=== PATIENT | female | born 1955 ===

== ENCOUNTER 2025-03-20 14:10 | Outpatient (AMB) | payer MEDICARE, SELFPAY ==
--- OUTSIDE RECORDS SUMMARY | 2025-01-02 06:40 | XMS_ITS ---
Author Organization [facility], Address [address] [address] Care Team Providers Care Greenhouse Manager Name Role Phone STACIE AMADOR Unavailable [phone] REASON FOR VISIT EST PATIENT, NEW INJ LUMBAR SPINE, GETTING XRAY NIÑO ERVIN Social History Sex Assigned At : Social History Observation Description Sex Assigned At Female Encounters Encounter Location Date Provider Diagnosis [facility], [address] [address] 01/02/2025 STACIE AMADOR Plan Of Treatment Next Appt Details Provider Name:STACIE MO, 09/04/2025 11:00:00 AM, [address] [address], [place], [address], Progress Notes * SHAWNElierZackB: (69 yo F)Acc No.[id number]:01/02/2025 Progress Notes Patient: Suha GRANADO Provider: Riana Amador DO :1955 A ge:69 Y S ex:Female Date:01/02/2025 Address:[address] [place] Subjective: * Chief Complaints: * 1 . EST PATIENT, NEW INJ LUMBAR SPINE, GETTING XRAY NIÑO ERVIN. * Medical History: Objective: * Vitals: Assessment: Plan: * Treatment: * Billing Information: * Visit Code: * Procedure Codes: * Electronic signature of JOSE A AMADOR DO on 03/20/2025 at 02:52 PM EDT Sign off status: Pending * Provider: Riana Amador DO Date: 0 01/02/2025 Generated for Karina bourgeois/Claudio/Kye on: 0 03/20/2025 02:52 PM EDT
--- OUTSIDE RECORDS SUMMARY | 2025-03-20 14:52 | XMS_ITS | Patient Health Record ---
Author Organization [facility] Address [address] [facility] [place] [address] Care Team Providers Care Bonus Clerk Name Role Phone Jim Alford Primary Care Provider Unavailab Albino Mckoy Unavailable [phone] Allergies Allergen (clinical drug ingredient) Drug/Non Drug Allergy documented on EMR Reaction Allergy Type Onset Date Status sulfamethoxazole / trimethoprim Bactrim Drug poisoning Drug Allergy Active lisinopril Lisinopril diastolic dysfunction Drug Allergy Active Motrin nausea Drug Allergy Active aspirin Aspirin ringing in ears Drug Allergy A ctive cortisone Cortisone osteoporosis Drug Allergy Acti ve famotidine Famotidine rash Drug Allergy Activ e fentanyl Fentanyl lowers blood pressure Drug Allergy Active Reason For Referral No Information Medications Medication SIG (Take, Route, Frequency, Duration) Notes Start Date End Date Status Cozaar 150 mg QD Unknown Nightsplint . . . AFO - L1930; Duration: . Unknown Losartan Potassium A ctive traMADol HCl 50 MG 1 tablet as needed Orally every 6 hrs 03/04/2018 Active traMADol HCl 50 MG 1 tablet as needed Orally Once a day Active Physical Therapy . . . 2-3x/week; Duration: 3-4 weeks 03/08/2018 Unknown Milk of Magnesia PRN Act brandon Phentermine HCl 15 MG 1 capsule Orally O nce a day Active fentaNYL Active PriLOSEC Active Loratadine Active Milk of Magnesia Act brandon PriLOSEC Active Calcium Active Aleve Active Losartan Potassium 25 MG 1 tablet Orally Once a day; Duration: 30 day(s) Active Calcium Active Loratadine PRN Active Aleve 220 MG 1 capsule with food or milk as needed Orally every 12 hrs Active Physical Therapy . . . 2-3x/week; Duration: 3-4 weeks 04/03/2022 Active Immunizations Vaccine Route Administration Date Status Comme nts COVID-19 Pfizer BioNTech Vaccine Unknown 11/29/2021 Administered 1st 11/01/20 2nd 11/22/20 3rd 07/14/21 Social History Tobacco Use: Social History Observation Description Date Details (start date - stop date) Never Smoker NA - NA Tobacco Use/Smoking Question Answer Notes Are you a: nonsmoker Additional Findings: Tobacco Non-User Current no n-smoker Alcohol Screen Question Answer Notes Did you have a drink containing alcohol in the p ast year? No Points 0 Interpretation Negative Tobacco use other than smoking: Question Answer Notes Are you an other tobacco user? No Problems Problem Type SNOMED Code ICD Code Onset Dates Problem Status W/U Status Risk Notes Problem Plantar wart (B07.0) Active confirmed Plan Of Treatment Pending Test Test Name Order Date [id number] Destruction, 1-14 04/03/2022 Insurance Providers Payer Name Payer Address Payer Phone Subscriber Number Group Number Insured Name Patient Relationship to Insured Coverage Start Date Coverage End Date Medicare [employer] [address] [place] [address] [id number] Suha Swain Self - patient is the insured Medical (General) History Medical History History ICD Code Arthritis Back,Hip,and Knee pain Broken bones Heart disease High blood pressure Osteoporosis Poor circulation Reflux ( GERD) Measles Mumps Chicken pox chronic sinusitis Surgical History Surgery Date(Month/Year) open reduction, internal fixation (ORIF) Left 2006 open reduction, internal fixation (ORIF) Right 2007 partial hysterectomy- vasovagal due to e pidural knee surgery, right- torn meniscus knee surgery, left- torn meniscus Fx radius severe Left and right ulnar po sitive left Spine L4- torn disc; C5 herniated disk, fx C7
--- OUTSIDE RECORDS SUMMARY | 2025-03-20 14:52 | XMS_ITS | Patient Health Record ---
Author Organization [facility] Address [address] [facility] [address] [facility] [place] [address] Care Team Providers Care Senior Android Developer Name Role Phone batool ortiz Primary Care Provider Unavailab NANDO Rodriguez Unavailable [phone] Allergies Allergen (clinical drug ingredient) Drug/Non Drug Allergy documented on EMR Reaction Allergy Type Onset Date Status gabapentin Gabapentin severe adverse reaction Drug Allergy Active lisinopril Lisinopril severe adverse reaction Drug Allergy Active tramadol Tramadol severe adverse reaction Drug Allergy Active Results Component Value Reference Range Notes X ray : Foot, right 3v Reviewed date:05/24/2024 10:32:34 AM Interpretation: Performing Lab: Notes/Report: Reason For Referral No Information Medications Medication SIG (Take, Route, Frequency, Duration) Notes Start Date End Date Status Loratadine 10 MG 1 tablet Orally Once a day Active Losartan Potassium 50 MG 1 tablet Orally Once a day Active Mupirocin 2 % 1 application Externally Twice a day Active Naproxen Sodium 220 MG 1 capsule with fo od or milk as needed Orally every 12 hrs Active PreviDent 5000 Plus 1.1 % as directed Dental Not-Taking Phentermine HCl 15 MG 1 capsule Orally O nce a day Not-Taking Estradiol 0.1 MG/GM as directed Vaginal Active hydroCHLOROthiazide 25 MG 1 tablet in th e morning Orally Once a day Active Ketoconazole 2 % 1 application Externally Once a day Active clonazePAM 0.25 MG 1 tablet on the tong ue and allow to dissolve 30 minutes before bedtime Orally Once a day Active Problems Problem Type SNOMED Code ICD Code Onset Dates Problem Status W/U Status Risk Notes Problem Chronic pain (01946279) Other chronic pain (G89.29) Active confirmed Vital Signs Heart Rate 76 /min 03/27/2024 Temperature 96.4 degrees Fahrenheit 03/27/2024 Respiratory Rate 16 /min 03/27/2024 Height 5ft 3.5in in 03/27/2024 Weight 198.1 lbs 03/27/2024 BMI 34.54 kg/m2 03/27/2024 Encounters Encounter Location Date Provider Diagnosis [facility] [address] 03/27/2024 NANDO HELTON Mass of soft tissue of ankle M79.89 ; Pain in left ankle and joints of left foot M25.572 ; Pain in right ankle and joints of right foot M25.571 ; Other chronic pain G89.29 and Onychomycosis B35.1 [facility] [address] 04/14/2024 NANDO HELTON Mass of soft tissue of ankle M79.89 ; Pain in left ankle and joints of left foot M25.572 ; Pain in right ankle and joints of right foot M25.571 ; Other chronic pain G89.29 and Onychomycosis B35.1 [facility] [address] 05/17/2024 NANDO HELTON Closed nondisplaced fracture of phalanx of lesser toe of right foot with routine healing, unspecified phalanx, subsequent encounter S92.504D ; Dystrophic nail L60.3 ; Mass of soft tissue of ankle M79.89 ; Pain in left ankle and joints of left foot M25.572 ; Pain in right ankle and joints of right foot M25.571 and Other chronic pain G89.29 [facility] [address] 03/28/2024 NANDO HELTON [facility] [address] 04/10/2024 NANDO HELTON [facility] [address] 04/14/2024 NANDO HELTON [facility] [address] 04/27/2024 NANDO HELTON [facility] [address] [address] 04/27/2024 NANDO HELTON [facility] [address] [address] 05/01/2024 NANDO HELTON [facility] [address] [address] 05/02/2024 NANDO HELTON Assessments Encounter Date Diagnosis (ICD Code) Assessment Notes Treatment Notes Treatment Clinical Notes Section Notes 03/27/2024 Pain in left ankle and joints of left foot (ICD-10 - M25.572) 03/27/2024 Mass of soft tissue of ankle (ICD-10 - M79.89) This is an outpatient visit for evaluation and management of a new patient, which required appropriate review of pertinent medical history, review of any previous imaging, review of all previous records, and examination and complex decision-making. Time was 45 minutes spent in review of all these facets including face to face discussion with the patient regarding my findings and in discussion of a current and future treatment plan. I reviewed with the patient her extensive history of foot and ankle issues. I had no records available for review. We discussed she already had a right ankle MRI done earlier this year. I asked the patient to obtain the MRI on disc, so I can review. I will request the imaging results from the past through [facility]. 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 We discussed she has turned in feet when she was little and wore bracing as a baby. We discussed that I would need to see the MRIs first to determine the best course of action. We discussed with a cystic structure sometimes it can be injected or drained. We discussed with the lipoma, if it is one structure versus multiple will determine if this can be removed open versus a more minimally invasive procedure. We also discussed the adjacent structures will play a part in procedural options. We also discussed the risk of recurrence. I will request the records, and she will obtain the imaging for me to review. We discussed that a lot of her swelling and pain improved once stopping the Tramadol and Gabapentin. We discussed the Tramadol does have a risk of seizures and spasms while the Gabapentin is known for lower extremity swelling. Since this is improving, I did not have further recommendations at this time regarding this issue. I will contact the patient to discuss her options once I have reviewed the imaging. She is in agreement with this plan. 04/14/2024 Mass of soft tissue of ankle (ICD-10 - M79.89) I reviewed all the imaging the patient brought for review. We discussed there is no longer a ganglion cyst in the subtalar joint due to arthritis. 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 We discussed she has turned in feet when she was little and wore bracing as a baby. We discussed with the lipoma, if it is one structure versus multiple will determine if this can be removed open versus a more minimally invasive procedure. We also discussed the adjacent structures will play a part in procedural options. We also discussed the risk of recurrence. We discussed that a lot of her swelling and pain improved once stopping the Tramadol and Gabapentin. We discussed the Tramadol does have a risk of seizures and spasms while the Gabapentin is known for lower extremity swelling. We discussed an open procedure to remove the fatty tumor from the ankle. We discussed that this would be done under local and IV sedation at [facility], with a 6-8 week recovery until back into normal shoes. She would like to take some time to think about this, and would like to schedule another call to check in 3-4 weeks. The total time of this phone call was 25 minutes. 05/17/2024 Dystrophic nail (ICD-10 - L60.3) I discussed with the patient that her nail biopsy results came back, and she no longer has a fungus in the toenail. We discussed the discoloration is from the trauma of the nail. We discussed it can take time for this to grow out. We discussed using a keratolytic to the nail can help with this process. I recommended she apply urea 40-50% cream to the nail to help as it grows out. She is in agreement with this plan. 05/17/2024 Closed nondisplaced fracture of phalanx of lesser toe of right foot with routine healing, unspecified phalanx, subsequent encounter (ICD-10 - S92.504D) We discussed a fracture in the foot can take 8-12 weeks for the bone to fully heal. We discussed when the fracture is non displaced, splinting or putting a boot on the foot is not necessary. She should wear a stiff soled shoe to sneaker to prevent excessive motion to the toe. I recommended she continue to ice and elevate the foot, especially at night. If she is pain free, she can participate in his walking activity, pain dependent. We discussed mild swelling is expected for the first 3-6 months. Patient to follow up as needed 04/14/2024 Pain in left ankle and joints of left foot (ICD-10 - M25.572) 03/27/2024 Pain in right ankle and joints of right foot (ICD-10 - M25.571) 03/27/2024 Other chronic pain (ICD-10 - G89.29) 05/17/2024 Mass of soft tissue of ankle (ICD-10 - M79.89) I reviewed all the imaging the patient brought for review. We discussed there is no longer a ganglion cyst in the subtalar joint due to arthritis. 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 We discussed she has turned in feet when she was little and wore bracing as a baby. We discussed with the lipoma, if it is one structure versus multiple will determine if this can be removed open versus a more minimally invasive procedure. We also discussed the adjacent structures will play a part in procedural options. We also discussed the risk of recurrence. We discussed that a lot of her swelling and pain improved once stopping the Tramadol and Gabapentin. We discussed the Tramadol does have a risk of seizures and spasms while the Gabapentin is known for lower extremity swelling. We discussed an open procedure to remove the fatty tumor from the ankle. We discussed that this would be done under local and IV sedation at [facility], with a 6-8 week recovery until back into normal shoes. At this time, she does not wish to proceed with surgical intervention. She states if the pain worsens, she will contact my office to schedule. The total time of this phone call was 15 minutes. 04/14/2024 Pain in right ankle and joints of right foot (ICD-10 - M25.571) 05/17/2024 Pain in left ankle and joints of left foot (ICD-10 - M25.572) 03/27/2024 Onychomycosis (ICD-10 - B35.1) I reviewed with the patient various treatment methods for toenail fungus including topical, oral, laser, and removal of the infected toenails. We discussed starting topical medication. I explained to the patient that a toenail takes 9-12 months to grow out completely, so they should start to slowly see results. Using a sheet rock nailer and curette, I obtained a toenail biopsy to send for ROSALIE, PAS, and fungal stain of the right hallux; pt tolerated well. We discussed there are both OTC treatments as well as prescription medication for the topical treatment of toenail fungus. I will send a prescription pending the biopsy results of the nail. She is in agreement with this plan. 04/14/2024 Other chronic pain (ICD-10 - G89.29) 04/14/2024 Onychomycosis (ICD-10 - B35.1) I reviewed with the patient various treatment methods for toenail fungus including topical, oral, laser, and removal of the infected toenails. We discussed starting topical medication. I explained to the patient that a toenail takes 9-12 months to grow out completely, so they should start to slowly see results. Using a sheet rock nailer and curette, I obtained a toenail biopsy to send for ROSALIE, PAS, and fungal stain of the right hallux; pt tolerated well. We discussed there are both OTC treatments as well as prescription medication for the topical treatment of toenail fungus. I will send a prescription pending the biopsy results of the nail. She is in agreement with this plan. 05/17/2024 Pain in right ankle and joints of right foot (ICD-10 - M25.571) 05/17/2024 Other chronic pain (ICD-10 - G89.29) Plan Of Treatment No Information Insurance Providers Payer Name Payer Address Payer Phone Subscriber Number Group Number Insured Name Patient Relationship to Insured Coverage Start Date Coverage End Date [employer] of [place] [address] [place] [phone] [id number] Suha Swain Self - patient is the insured Medical (General) History Medical History History ICD Code hypertension severe obesity (BMI 35.0-35.9) hyperparathyroidism osteoarthritis of both knees menopausal syndrome chronic midline low back pain without sc iatica COVID vaccinated X 6 (ISVS) Surgical History Surgery Date(Month/Year) myomectomy partial hysterectomy bilateral broken wrist Hospitalization History Reason Date(Month/Year) bilateral broken wrist partial hysterectomy myomectomy kidney infection as a child
--- OUTSIDE RECORDS SUMMARY | 2025-03-20 14:52 | XMS_ITS | Patient Health Record ---
Author Organization [facility] Address [address] [place], [place] [id number] Care Team Providers Care Traveling Missionary Name Role Phone Mervin Prieto MD Primary Care Provider UnavailTennille Vitale Unavailable [phone] Allergies Allergen (clinical drug ingredient) Drug/Non Drug Allergy documented on EMR Reaction Allergy Type Onset Date Status Sulfacet-R Unknown Drug Allergy Active Reason For Referral No Information Medications Medication SIG (Take, Route, Fr equency, Duration) Notes Start Date End Date Status traMADol HCl 50mg Active Vitamin D-3 Active Calcium Active Lisinopril 5 mg QD Active Aleve Active Kerydin 5% as directed transder mal Apply once a day; Duration: 120 days Active Problems Problem Type SNOMED Code ICD Code Onset Dates Problem Status W/U Status Risk Notes Problem Edema (066258726) Edema (782.3) Active confirme d Problem Closed fracture of fibula (790482182) Fx fibula, closed (823.81) Active confirmed Problem Closed fracture of foot (213388621) Fracture, unspecified (foot) (825.20) Active confirmed Problem 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 Problem Sprain of ankle (55752983) Sprain, ankle (845.00) Active confirmed Problem Sprain of ligament o f tarsometatarsal joint (65629996) Sprain foot, tarsometatarsal (joint) (ligament) (845.11) Active confirmed Problem Sprain, metatarsophalangeal joint (009074427) Sprain MPJ (joint) (845.12) Active confirmed Problem Tenosynovitis of foot and ankle (727.06) Active confirmed Problem Enthesopathy (18325553) Capsulitis/tendon itis, un (726.90) Active confirmed Problem Onychomycosis (795252384) Onychomycosis (110.1) Active confirmed Problem Pain in limb (07685661) Pain in limb (729.5) Active confirmed Problem Sprain of ankle (98031861) Sprain, ankle (845.00) Active confirmed Problem Pain in limb (76047849) Pain in limb (729.5) Active confirmed Problem Sprain of foot (84858815) Sprain of foot (845.19) Active confirmed Plan Of Treatment No Information Insurance Providers Payer Name Payer Address Payer Phone Subscriber Number Group Number Insured Name Patient Relationship to Insured Coverage Start Date Coverage End Date [facility] [address] [place] [address] [id number] Suha Medina Self - patient is the insured Medical (General) History Medical History History ICD Code foot fracture gait disorder fungus on nails heel pain osteopenia Surgical History Surgery Date(Month/Year) wrist surgery
--- OUTSIDE RECORDS SUMMARY | 2025-03-20 14:52 | XMS_ITS | Clinical Summary ---
Author Organization [facility] Facility Address [address] [facility] [facility] [address] [place] [address] [place] [address] Care Team Providers Care Riveter Helper Name Role Phone Unavailable Primary Care Provider Unavailabl e Encounters Date Type Department Care Team Description 03/06/2025 Telephone [facility] [address] [place] [address] Lucy Gonzalez MA from Last 3 Months Social History Tobacco Use Types Packs/Day Years Used Date Smoking Tobacco: Never Assessed Comments Unknown Sex and Gender Information Value Date Recorded Sex Assigned at Not on file Legal Sex Female 3:05 PM EDT Gender Identity Not on file Sexual Orientation Not on file Plan of Treatment Health Maintenance Due Date Last Done Comments Breast Cancer Screening 1955 Colorectal Cancer Screening: Annual FOBT 2005 Colorectal Cancer Screening: Colonoscopy 2005 Colorectal Cancer Screening: Sigmoidoscopy 2005 Pneumococcal Vaccine: 50+ Ye ars (1 of 1 - PCV) 2006 Influenza Vaccine (#1) 2025 Hepatitis B Vaccine Aged Out No longe r eligible based on patient's age to complete this topic
--- OUTSIDE RECORDS SUMMARY | 2025-03-20 14:52 | XMS_ITS | Clinical Summary ---
Author Organization [employer] Address [address] [place] [address] [address] [place] [address] Care Team Providers Care Bankruptcy Assistant Name Role Phone Unavailable Primary Care Provider Unavailabl e Allergies Active Allergy Reactions Criticality Noted Date Comments Famotidine Rash Low 09/24/2023 Fentanyl 09/24/2023 Had a high dose in surgery long time ago and flatline Sulfa Antibiotics 09/24/2023 Drug poisoning as a child Medications losartan (Cozaar) 50 MG tablet Take 50 mg by mouth in the morning. 3 Active traMADol (Ultram) 50 MG tablet 1 tablet in the morning and 1 tablet at noon and 1 tablet in the evening and 1 tablet before bedtime. 8 Active Sodium Fluoride 1.1 % cream Apply 2 Applications to teeth 2 times daily. 1 g 1 4 Active Social History Tobacco Use Types Packs/Day Years Used Date Smoking Tobacco: Never Tobacco Cessation:Counseling Given: Not Answered Comments Unknown Sex and Gender Information Value Date Recorded Sex Assigned at Female 09/24/2023 9:03 AM EST Legal Sex Female 9:03 AM EST Gender Identity Female 09/24/2023 9:03 AM EST Sexual Orientation Straight 09/24/2023 9: 03 AM EST Plan of Treatment Health Maintenance Due Date Last Done Comments CT Colonography 1956 Colonoscopy 1956 Colorectal Cancer Screening 1956 Dental Oral Exam 1956 Dental Prophylaxis 1956 Dental X-Ray: Full Mouth 1956 Depression Screening 1956 FIT DNA/Cologuard 1956 FIT 1956 FOBT 1956 Lipid Panel 1956 SDOH Screening 1956 Sigmoidoscopy 1956 Alcohol/Substance Use Screening 1968 Tobacco Screening 1968 Hepatitis C Screening 1974 Pneumococcal Vaccine: 50+ Years (1 of 1 - PCV) 2006 Zoster Vaccines (1 of 2) 2006 COVID-19 Vaccine ( season) 2024 08/01/2023, 07/25/2022, 11/29/2021, Additional history exists Dental X-Ray: Bitewings 09/25/2024 09/24/2023 Influenza Vaccine (#1) 2025 08/27/2015 Mammogram 05/20/2025 05/20/2023, 04/24, 06/09/2021, Additional history exists DTaP/Tdap/Td Vaccines (2 - Td or Tdap) 03/20/2029 03/20/2019 RSV Patients and Patients Aged 60 years or older (1 - 1-dose 75+ series) 2031 HIB Vaccines Aged Out No longer eligi ble based on patient's age to complete this topic HPV Vaccines Aged Out No longer eligi ble based on patient's age to complete this topic Hepatitis A Vaccines Aged Out No long er eligible based on patient's age to complete this topic Hepatitis B Vaccines Aged Out No long er eligible based on patient's age to complete this topic IPV Vaccines Aged Out No longer eligi ble based on patient's age to complete this topic Meningococcal B Vaccine Aged Out No l onger eligible based on patient's age to complete this topic Meningococcal Vaccine Aged Out No brock jorge eligible based on patient's age to complete this topic RSV under 20 months Aged Out No longe r eligible based on patient's age to complete this topic Rotavirus Vaccines Aged Out No longer eligible based on patient's age to complete this topic Procedures Procedure Name Priority Date/Time Associated Diagnosis Comments BITEWING - SINGLE RADIOGRAPHIC IMAGE Routine 09/24/2023 1:00 PM EST from Last 3 Months or Most Recently Relevant to Health Maintenance
--- NOTE | 2025-03-20 15:12 | HO.NEPHOV ---
Vital Signs 03/20/25 15:22 Height 5 ft 3.5 in Weight 213 lb 4 oz BMI 37.2 BP 140/90 H Blood Pressure Location Lt brachial Position Sitting Pulse 66 Pulse Source Pulse Oximeter Pulse Oximetry (%) 98 Oxygen Delivery Method Room Air Intake Visit Reasons: ENP: Hematuria, CKD-Conf Broach Grinder Required: No Accompanied by: Self / Same As Patient Allergies fentanyl Allergy (Verified 03/20/25 15:22) Unknown Iodinated Contrast Media (Contrast Dye) Allergy (Verified 03/20/25 15:22) Unknown tramadol Allergy (Verified 03/20/25 15:22) Seizure HPI Comments Details: I had the privilege of seeing Suha in consultation for hydronephrosis. She is known to have hypertension but her BP has not been well controlled. She had been having left thigh pain which she thought has been getting worse since she has been initiated on losartan & she had discontinued it. She has been adjusting HCTZ to get BP controlled but still not optimal. She has H/O renal calculus. Recently she had imaging studies which showed parapelvic cysts but another imaging suggested hydronephrosis and possible UPJ issues. She has no H/O UPJ obstruction or hydronephrosis in her life prior to this. Her serum creatinine apparently had been normal. She denies active urinary complaints. [facility] Medical History (Updated 03/22/25 @ 20:44 by Raghu Teixeira MD) Kidney stone Hypertension Osteoarthritis, knee Hydronephrosis Surgical History (Updated 03/20/25 @ 15:17 by Britta Cast MA) H/O wrist surgery History of hysterectomy Family History (Updated 03/20/25 @ 15:19 by Britta Cast MA) Father Heart attack Social History (Updated 03/20/25 @ 15:17 by Britta Cast MA) Alcohol intake: never Patient Tobacco Use Status: Never used Tobacco Review of Systems Const All systems reviewed & are unremarkable except as noted in HPI and below Physical Exam Vital Signs: Last Vital Signs Pulse 66 03/20/25 15:22 BP 140/90 H 03/20/25 15:22 Pulse Ox 98 03/20/25 15:22 Oxygen Delivery Method Room Air 03/20/25 15:22 BMI result Body Mass Index 37.2 Const General: comfortable and no acute distress Orientation/consciousness: patient oriented x3 HEENT Head: Yes normocephalic Mouth: Normal oral and palatal mucosa present Eyes EOM: EOMs intact bilaterally Neck Neck: Yes supple Resp Auscultation: clear to auscultation bilaterally Cardio Jugular venous distension: no JVD Rate: regular rate GI Palpation (GI): Soft to palpation Auscultation: normal bowel sounds General: Yes no CVA tenderness Back/Spine/Pelvis Back: no CVA tenderness Skin General skin exam: no rashes or lesions noted Neuro General: patient oriented x3 and moves all extremities Extrem General: Yes no pedal edema Assessment & Plan Assessment & Plan (1) Hydronephrosis: Code(s): N13.30 - Unspecified hydronephrosis Category: Medical Qualifiers: Hydronephrosis type: other Qualified Code(s): N13.39 - Other hydronephrosis (2) Hypertension: Code(s): I10 - Essential (primary) hypertension Category: Medical Qualifiers: Hypertension type: primary hypertension Qualified Code(s): I10 - Essential (primary) hypertension Plan Differential diagnosis has been parapelvic cysts vs UPJ obstruction vs stricture/stones. BP poorly controlled. Started Amlodipine after explaining side effects. Needs MRI kidneys and nuclear scan along with basic investigations to delineate the differentials. All possibilities discussed Answered all questions and F/U appointment given Orders: Orders UA and rflx microscopic 03/20/25 I10 - Essential (primary) hypertension, N13.30 - Unspecified hydronephrosis Protein Creatinine Ratio, Ur 03/20/25 I10 - Essential (primary) hypertension, N13.30 - Unspecified hydronephrosis TSH reflex Free T4 03/20/25 I10 - Essential (primary) hypertension, N13.30 - Unspecified hydronephrosis Electrolytes 03/20/25 I10 - Essential (primary) hypertension, N13.30 - Unspecified hydronephrosis Blood Urea Nitrogen 03/20/25 I10 - Essential (primary) hypertension, N13.30 - Unspecified hydronephrosis NM renal flow w pharm int 03/20/25 I10 - Essential (primary) hypertension, N13.30 - Unspecified hydronephrosis MR abdomen wo/w con 03/20/25 I10 - Essential (primary) hypertension, N13.30 - Unspecified hydronephrosis Creatinine 03/20/25 I10 - Essential (primary) hypertension, N13.30 - Unspecified hydronephrosis Medications: New amlodipine 2.5 mg PO DAILY 90 tabs 3RF Coding Level of Care Code New Pt Level 4 (84870) Diagnoses Other hydronephrosis N13.39 Hydronephrosis type: other Primary hypertension I10 Hypertension type: primary hypertension
[2025-03-20 15:22] VITALS: BP 140/90; PULSE 66; O2SAT 98; BMI 37.2
== END 2025-03-20 16:24 | disposition home or self-care (01) ==
LOC: HO.HKAS 14:10
PROVIDERS: PCP Internal Medicine; Visit Provider Internal Medicine Nephrology
DX: N13.39 Other hydronephrosis (principal); I10 Essential (primary) hypertension
CPT/HCPCS: 99204

== ENCOUNTER → 2025-03-20 14:10 | Outpatient (BNVA) | payer MEDICARE, SELFPAY | PROVIDERS: PCP Internal Medicine; Visit Provider Internal Medicine Nephrology | DX: N13.39 Other hydronephrosis (principal); I10 Essential (primary) hypertension | CPT/HCPCS: 99202 ==

== ENCOUNTER 2025-03-24 13:12 | Outpatient (REF) | payer MEDICARE, SELFPAY ==
--- OUTSIDE RECORDS SUMMARY | 2025-01-02 06:40 | XMS_ITS ---
Author Organization [facility], Address [address] [address] Care Team Providers Care Paleontology Teacher Name Role Phone STACIE AMADOR Unavailable [phone] REASON FOR VISIT EST PATIENT, NEW INJ LUMBAR SPINE, GETTING XRAY NIÑO ERVIN Social History Sex Assigned At : Social History Observation Description Sex Assigned At Female Encounters Encounter Location Date Provider Diagnosis [facility], [address] [address] 01/02/2025 STACIE AMADOR Plan Of Treatment Next Appt Details Provider Name:STACIE MO, 09/04/2025 11:00:00 AM, [address] [address], [place], [address], Progress Notes * SHAWNElierZackB: (69 yo F)Acc No.[id number]:01/02/2025 Progress Notes Patient: Suha GRANADO Provider: Riana Amador DO :1955 A ge:69 Y S ex:Female Date:01/02/2025 Address:[address] [place] Subjective: * Chief Complaints: * 1 . EST PATIENT, NEW INJ LUMBAR SPINE, GETTING XRAY NIÑO ERVIN. * Medical History: Objective: * Vitals: Assessment: Plan: * Treatment: * Billing Information: * Visit Code: * Procedure Codes: * Electronic signature of JOSE A AMADOR DO on 03/24/2025 at 01:15 PM EDT Sign off status: Pending * Provider: Riana Amador DO Date: 0 01/02/2025 Generated for Karina bourgeois/Claudio/Kye on: 0 03/24/2025 01:15 PM EDT
--- OUTSIDE RECORDS SUMMARY | 2025-03-24 13:15 | XMS_ITS | Patient Health Record ---
Author Organization [facility] Address [address] [place], [place] [address] Care Team Providers Care Salesperson Pianos And Organs Name Role Phone Mervin Prieto MD Primary Care Provider UnavailTennille Vitale Unavailable [phone] Allergies Allergen (clinical drug ingredient) Drug/Non Drug [...] Status W/U Status Risk Notes Problem Edema (206817602) Edema (782.3) Active confirme d Problem Closed fracture of fibula (055058886) Fx fibula, closed (823.81) Active confirmed Problem Closed fracture of foot (142607396) Fracture, unspecified (foot) (825.20) Active confirmed 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 Problem Sprain of ankle (03132483) Sprain, ankle (845.00) Active confirmed Problem Sprain of ligament o f tarsometatarsal joint (60276167) Sprain foot, tarsometatarsal (joint) (ligament) (845.11) Active confirmed Problem Sprain, metatarsophalangeal joint (059323633) Sprain MPJ (joint) (845.12) Active confirmed Problem Tenosynovitis of foot and ankle (727.06) Active confirmed Problem Enthesopathy (98516789) Capsulitis/tendon itis, un (726.90) Active confirmed Problem Onychomycosis (201836728) Onychomycosis (110.1) Active confirmed Problem Pain in limb (26453356) Pain in limb (729.5) Active confirmed Problem Sprain of ankle (93367072) Sprain, ankle (845.00) Active confirmed Problem Pain in limb (46292499) Pain in limb (729.5) Active confirmed Problem Sprain of foot (76421463) Sprain of foot (845.19) Active confirmed Plan Of Treatment No Information Insurance Providers Payer Name Payer Address Payer Phone Subscriber Number Group Number Insured Name Patient Relationship to Insured Coverage Start Date Coverage End Date [facility] [address] [place] [address] [phone] [id number] Suha Medina Self - patient is the insured Medical (General) History Medical History History ICD Code foot fracture gait disorder fungus on nails heel pain osteopenia Surgical History Surgery Date(Month/Year) wrist surgery
--- OUTSIDE RECORDS SUMMARY | 2025-03-24 13:15 | XMS_ITS | Clinical Summary ---
Author Organization [employer] Address [address] [place] [address] 7[address] [place] [address] Care Team Providers Care Etl Informatica Developer Name Role Phone Unavailable Primary Care Provider [...]
--- OUTSIDE RECORDS SUMMARY | 2025-03-24 13:15 | XMS_ITS | Clinical Summary ---
Author Organization [facility] Facility Address [address] [facility] [address] [place] [address] [place] [address] Care Team Providers Care Director Energy Name Role Phone Unavailable Primary Care Provider Unavailabl e Encounters Date Type Department Care Team Description 03/06/2025 Telephone [facility] [address] [place] [address] Lucy Gonzalez MA from Last [...]
--- OUTSIDE RECORDS SUMMARY | 2025-03-24 13:15 | XMS_ITS | Patient Health Record ---
Author Organization [facility] Address [address] [facility] [place] [address] Care Team Providers Care Shells Inspector Name Role Phone Jim Alford Primary Care Provider Unavailab Albino Mckoy Unavailable [phone] Allergies Allergen (clinical drug ingredient) Drug/Non Drug [...] Treatment Pending Test Test Name Order Date [id number] Destruction, 1-14 04/03/2022 Insurance Providers Payer Name Payer Address Payer Phone Subscriber Number Group Number Insured Name Patient Relationship to Insured Coverage Start Date Coverage End Date Medicare National Govt Svcs Inc [address] [place] [address] [id number] Suha Swain Self - patient is the [...]
--- OUTSIDE RECORDS SUMMARY | 2025-03-24 13:16 | XMS_ITS | Patient Health Record ---
Author Organization [facility] Address [address] [facility] [address] [place] [address] Care Team Providers Care Enamel Finisher Name Role Phone batool ortiz Primary Care Provider Unavailab NANDO Rodriguez Unavailable [phone] Allergies Allergen (clinical drug ingredient) Drug/Non Drug [...] W/U Status Risk Notes Problem Chronic pain (33693999) Other chronic pain (G89.29) Active confirmed Vital Signs Heart Rate 76 /min 03/27/2024 Temperature 96.4 degrees Fahrenheit 03/27/2024 Respiratory Rate 16 /min 03/27/2024 Height 5ft 3.5in in 03/27/2024 Weight 198.1 lbs 03/27/2024 BMI 34.54 kg/m2 03/27/2024 Encounters Encounter Location Date Provider Diagnosis [facility] [address] 03/27/2024 NANDO HELTON Mass of soft tissue of ankle M79.89 ; Pain in left ankle and joints of left foot M25.572 ; Pain in right ankle and joints of right foot M25.571 ; Other chronic pain G89.29 and Onychomycosis B35.1 [facility] [address] 04/14/2024 NANDO HETLON Mass of soft tissue of ankle M79.89 ; Pain in left ankle and joints of left foot M25.572 ; Pain in right ankle and joints of right foot M25.571 ; Other chronic pain G89.29 and Onychomycosis B35.1 [facility] [address] 05/17/2024 NANDO HELTON Closed nondisplaced fracture of phalanx of lesser toe of right foot with routine healing, unspecified phalanx, subsequent encounter S92.504D ; Dystrophic nail L60.3 ; Mass of soft tissue of ankle M79.89 ; Pain in left ankle and joints of left foot M25.572 ; Pain in right ankle and joints of right foot M25.571 and Other chronic pain G89.29 [facility] [address] 03/28/2024 NANDO HELTON [facility] [address] 04/10/2024 NANDO HELTON [facility] [address] 04/14/2024 NANDO HELTON [facility] [address] 04/27/2024 NANDO HELTON [facility] [address] [address] 04/27/2024 NANDO HELTON [facility] [address] [address] 05/01/2024 NANDO HELTON [facility] [address] [address] 05/02/2024 NANDO HELTON Assessments Encounter Date Diagnosis [...] the imaging results from the past through [facility]. I discussed with the patient that the [...] done under local and IV sedation at [facility], with a 6-8 week recovery until [...] done under local and IV sedation at [facility], with a 6-8 week recovery until [...] start to slowly see results. Using a plush cutter and curette, I obtained a toenail biopsy [...] start to slowly see results. Using a plush cutter and curette, I obtained a toenail biopsy [...] [place] [address] [place] [address] [id number] Suha Swain Self - patient is the insured Medical (General) History Medical History History ICD Code hypertension severe obesity (BMI 35.0-35.9) hyperparathyroidism osteoarthritis of both knees menopausal syndrome chronic midline low back pain without sc iatica COVID vaccinated X 6 (MoVoxx) Surgical History Surgery Date(Month/Year) myomectomy partial hysterectomy bilateral broken wrist Hospitalization History Reason Date(Month/Year) bilateral broken wrist partial hysterectomy myomectomy kidney infection as a child
[2025-03-29 22:03] LABS: CK-BB 3 % (None Detected); CK-MB 0 % (<5); CK-MM 97 % (95-100); Creatine Kinase Isoenzyme Itrp BB BAND PRESENT.; Creatine Kinase,Total,Serum 108 U/L (20-243)
== END 2025-03-24 13:13 | disposition home or self-care (01) ==
LOC: HO.HMGCLDS 13:12
PROVIDERS: PCP Internal Medicine; Visit Provider Internal Medicine Nephrology
DX: I10 Essential (primary) hypertension (principal)
CPT/HCPCS: 36415; 82552

== ENCOUNTER 2025-04-19 15:04 | Outpatient (AMB) | payer MEDICARE, SELFPAY ==
--- OUTSIDE RECORDS SUMMARY | 2025-01-02 06:40 | XMS_ITS ---
Author Organization [facility], Address [address] [address] Care Team Providers Care Ice Cream Dipper Name Role Phone STACIE AMADOR Unavailable [phone] REASON FOR VISIT EST PATIENT, NEW INJ LUMBAR SPINE, GETTING XRAY NIÑO ERVIN Social History Sex Assigned At : Social History Observation Description Sex Assigned At Female Encounters Encounter Location Date Provider Diagnosis [facility], [address] [address] 01/02/2025 STACIE AMADOR Plan Of Treatment Next Appt Details Provider Name:STACIE MO, 09/04/2025 11:00:00 AM, [address] [address], [place], [address], Progress Notes * SHAWNElierZackB: (69 yo F)Acc No.[id number]:01/02/2025 Progress Notes Patient: Suha GRANADO Provider: Riana Amador DO :1955 A ge:69 Y S ex:Female Date:01/02/2025 Address[address] [place] Subjective: * Chief Complaints: * 1 . EST PATIENT, NEW INJ LUMBAR SPINE, GETTING XRAY NIÑO ERVIN. * Medical History: Objective: * Vitals: Assessment: Plan: * Treatment: * Billing Information: * Visit Code: * Procedure Codes: * Electronic signature of JOSE A AMADOR DO on 04/19/2025 at 03:44 PM EDT Sign off status: Pending * Provider: Riana Amador DO Date: 0 01/02/2025 Generated for Karina bourgeois/Claudio/Kye on: 0 04/19/2025 03:44 PM EDT
--- NOTE | 2025-04-19 15:27 | HO.NEPHOV_ITS ---
Vital Signs 04/19/25 15:32 Height 5 ft 3.5 in Weight 213 lb 4 oz BMI 37.2 BP 132/84 Blood Pressure Location Lt brachial Position Sitting Pulse 64 Pulse Source Pulse Oximeter Pulse Oximetry (%) 97 Oxygen Delivery Method Room Air Intake Visit Reasons: 1mnth w labs-LVM Construction Management Assistant Required: No Accompanied by: Self / Same As Patient Allergies fentanyl Allergy (Verified 04/19/25 15:32) Unknown Iodinated Contrast Media (Contrast Dye) Allergy (Verified 04/19/25 15:32) Unknown tramadol Allergy (Verified 04/19/25 15:32) Seizure HPI Comments Details: Suha was seen in follow up for hypertension and hydronephrosis. She was started on Amlodipine with development of edema . She was seen in ER in [place] and [place] ER. Her Amlodipine has been discontinued with resolution of edema. She has increased her losartan with good BP at goal. She has H/O renal calculus. Recently she had imaging studies which showed parapelvic cysts but another imaging suggested hydronephrosis and possible UPJ issues. She is due to have MRI and nuclear scan of kidney. Her serum creatinine apparently had been normal. Her urine protein has been negative. She denies active urinary complaints. [facility] Medical History (Updated 04/19/25 @ 20:12 by Raghu Teixeira MD) Kidney stone Hypertension Osteoarthritis, knee Hydronephrosis Surgical History H/O wrist surgery History of hysterectomy Family History Father Heart attack Social History Alcohol intake: never Patient Tobacco Use Status: Never used Tobacco Review of Systems Const All systems reviewed & are unremarkable except as noted in HPI and below Physical Exam Vital Signs: Last Vital Signs Pulse 64 04/19/25 15:32 BP 132/84 04/19/25 15:32 Pulse Ox 97 04/19/25 15:32 Oxygen Delivery Method Room Air 04/19/25 15:32 BMI result Body Mass Index 37.2 Const General: comfortable and no acute distress Orientation/consciousness: patient oriented x3 HEENT Head: Yes normocephalic Mouth: Normal oral and palatal mucosa present Eyes EOM: EOMs intact bilaterally Neck Neck: Yes supple Resp Auscultation: clear to auscultation bilaterally Cardio Jugular venous distension: no JVD Rate: regular rate GI Palpation (GI): Soft to palpation Auscultation: normal bowel sounds General: Yes no CVA tenderness Back/Spine/Pelvis Back: no CVA tenderness Skin General skin exam: no rashes or lesions noted Neuro General: patient oriented x3 and moves all extremities Extrem General: Yes no pedal edema Assessment & Plan Assessment & Plan (1) Hypertension: Code(s): I10 - Essential (primary) hypertension Category: Medical Qualifiers: Hypertension type: primary hypertension Qualified Code(s): I10 - Essential (primary) hypertension (2) Hydronephrosis: Code(s): N13.30 - Unspecified hydronephrosis Category: Medical Qualifiers: Hydronephrosis type: other Qualified Code(s): N13.39 - Other hydronep hrosis (3) Edema: Code(s): R60.9 - Edema, unspecified Category: Medical Qualifiers: Edema type: unspecified Qualified Code(s): R60.9 - Edema, unspecified Plan Her BP is at goal on ARB. Her edema has gone away after discontinuation of Amlodipine. Differential diagnosis has been parapelvic cysts vs UPJ obstruction vs stricture/stones( for hydronephrosis) . BP poorly controlled. MRI kidneys and nuclear scan is pending. All possibilities discussed. I did not make any medication changes today. She wants a referral to lymphedema clinic as she gets intermittent pedal edema and has some lymph node swelling in the left groin. Answered all questions and F/U appointment given Orders: Referrals Lymphedema Clinic Referral R60.9 - Edema, unspecified Coding Level of Care Code Est Pt Level 4 (20068) Diagnoses Primary hypertension I10 Hypertension type: primary hypertension Other hydronephrosis N13.39 Hydronephrosis type: other Edema, unspecified type R60.9 Edema type: unspecified
[2025-04-19 15:32] VITALS: BP 132/84; PULSE 64; O2SAT 97; BMI 37.2
--- OUTSIDE RECORDS SUMMARY | 2025-04-19 15:44 | XMS_ITS | Clinical Summary ---
Author Organization [employer] Address [address] [place] [address] [address] [place] [address] Care Team Providers Care Prop Drawer Name Role Phone Unavailable Primary Care Provider [...]
--- OUTSIDE RECORDS SUMMARY | 2025-04-19 15:44 | XMS_ITS | Patient Health Record ---
Author Organization [facility] Address [address] [facility] [place] [address] Care Team Providers Care Records Management Associate Name Role Phone Jim Alford Primary Care Provider Unavailab Albino Mckoy Unavailable [phone] Allergies Allergen (clinical drug ingredient) Drug/Non Drug [...] Treatment Pending Test Test Name Order Date [id number] Destruction, 1-14 04/03/2022 Insurance Providers Payer Name Payer Address Payer Phone Subscriber Number Group Number Insured Name Patient Relationship to Insured Coverage Start Date Coverage End Date Medicare National Govt Svcs Inc [address] [place] [address] [id number] Suha Swain Self - patient is the [...]
--- OUTSIDE RECORDS SUMMARY | 2025-04-19 15:44 | XMS_ITS | Clinical Summary ---
Author Organization [facility] Facility Address [address] [facility] [address] [place] [address] [place] [address] Care Team Providers Care Manager In Training Name Role Phone Unavailable Primary Care Provider Unavailabl e Encounters Date Type Department Care Team Description 03/06/2025 Telephone [facility] [address] [address] Lucy Gonzalez MA from Last [...]
--- OUTSIDE RECORDS SUMMARY | 2025-04-19 15:44 | XMS_ITS | Patient Health Record ---
Author Organization [facility] Address [address] [address] Care Team Providers Care Superintendent Production Name Role Phone batool ortiz Primary Care Provider Unavailab NANDO Rodriguez Unavailable [phone] Allergies Allergen (clinical drug ingredient) Drug/Non Drug [...] W/U Status Risk Notes Problem Chronic pain (60552853) Other chronic pain (G89.29) Active confirmed Encounters Encounter Location Date Provider Diagnosis [facility] [address] [address] 05/17/2024 NANDO HELTON Closed nondisplaced fracture of phalanx of lesser toe of right foot with routine healing, unspecified phalanx, subsequent encounter S92.504D ; Dystrophic nail L60.3 ; Mass of soft tissue of ankle M79.89 ; Pain in left ankle and joints of left foot M25.572 ; Pain in right ankle and joints of right foot M25.571 and Other chronic pain G89.29 [facility] [address] 04/27/2024 NANDO HELTON [facility] [address] 04/27/2024 NANDO HELTON [facility] [address] 05/01/2024 NANDO HELTON [facility] [address] 05/02/2024 NANDO HELTON Assessments Encounter Date Diagnosis (ICD Code) Assessment Notes Treatment Notes Treatment Clinical Notes Section Notes 05/17/2024 Dystrophic nail (ICD-10 - L60.3) I [...] months. Patient to follow up as needed 05/17/2024 Mass of soft tissue of ankle [...] done under local and IV sedation at [facility], with a 6-8 week recovery until back into normal shoes. At this time, she does not wish to proceed with surgical intervention. She states if the pain worsens, she will contact my office to schedule. The total time of this phone call was 15 minutes. 05/17/2024 Pain in left ankle and joints of left foot (ICD-10 - M25.572) 05/17/2024 Pain in right ankle and joints of right foot (ICD-10 - M25.571) 05/17/2024 Other chronic pain (ICD-10 - G89.29) Plan Of Treatment No Information Insurance Providers Payer Name Payer Address Payer Phone Subscriber Number Group Number Insured Name Patient Relationship to Insured Coverage Start Date Coverage End Date Medicare of [place] [address] [place] [phone] [id number] Suha Swain Self - patient is the insured Medical (General) History Medical History History ICD Code hypertension severe obesity (BMI 35.0-35.9) hyperparathyroidism osteoarthritis of both knees menopausal syndrome chronic midline low back pain without sc iatica COVID vaccinated X 6 ([employer]) Surgical History Surgery Date(Month/Year) myomectomy partial hysterectomy bilateral broken wrist Hospitalization History Reason Date(Month/Year) bilateral broken wrist partial hysterectomy myomectomy kidney infection as a child
--- OUTSIDE RECORDS SUMMARY | 2025-04-19 15:44 | XMS_ITS | Patient Health Record ---
Author Organization [facility], Address [address] [facility] [address] [place] [address] Care Team Providers Care Claims Clerk Name Role Phone STACIE LAROSE Unavailable [phone] Allergies Allergen (clinical drug ingredient) Drug/Non Drug Allergy documented on EMR Reaction Allergy Type Onset Date Status fentanyl fentaNYL Unknown Drug Allergy Active Sulfur Unknown Drug Allergy Active famotidine Famotidine Unknown Drug Allergy Activ e tramadol Tramadol Unknown Drug Allergy Active Reason For Referral No Information Medications Medication SIG (Take, Route, Fr equency, Duration) Notes Start Date End Date Status hydroCHLOROthiazide Active Sudafed Active KlonoPIN Active Losartan Potassium A ctive Social History Tobacco Use: Social History Observation Description Date Details (start date - stop date) Never Smoker NA - NA Sex Assigned At : Social History Observation Description Sex Assigned At Female Tobacco Use/Smoking Question Answer Notes Tobacco use: nonsmoker Problems Problem Type SNOMED Code ICD Code Onset Dates Problem Status W/U Status Risk Notes Problem Chronic pain (31644021) Other chronic pain (G89.29) Active confirmed Problem Lumbar spondylosis (799453123) Lumbar spondylosis (M47.816) Active confirmed Problem Osteoarthritis of knee (113559676) Primary osteoarthritis of left knee (M17.12) Active confirmed Problem Osteoarthritis of knee (120056121) Primary osteoarthritis of right knee (M17.11) Active confirmed Problem Osteoarthritis of knee (887480201) Primary osteoarthritis of both knees (M17.0) Active confirmed Problem Inflammation of left saphenous nerve (disorder) (153365889775992) Neuritis of left saphenous nerve (G57.82) Active confirmed Problem Essential hypertension (52469083) Hypertension, unspecified type (I10) Active confirmed Vital Signs Blood pressure diastolic 90 mm Hg 01/10/2025 Weight-kg 86.18 kg 01/10/2025 Height 64 in 02/27/2025 Blood pressure systolic 150 mm Hg 01/10/2025 Weight 190 lbs 01/10/2025 BMI 32.61 kg/m2 01/10/2025 Encounters Encounter Location Date Provider Diagnosis [facility] [address] [facility] [place] 06/19/2024 STACIE LAROSE Primary osteoarthrit is of both knees M17.0 ; Pain in left ankle and joints of left foot M25.572 ; Other chronic pain G89.29 ; Left Achilles tendinitis M76.62 ; Hypertension, unspecified type I10 and Primary osteoarthritis of right knee M17.11 [facility] [address] [place] 09/15/2024 STACIE LAROSE Primary osteoarthrit is of both knees M17.0 and Hypertension, unspecified type I10 [facility] [address] [place], [place] 01/10/2025 STACIE LAROSE Lumbar spondylosis M47.816 ; Hypertension, unspecified type I10 and Primary osteoarthritis of right knee M17.11 [facility] [address] [place], [place] 02/27/2025 STACIE LAROSE Primary osteoarthrit is of left knee M17.12 [facility] [address] [place], [place] 06/12/2024 STACIE LAROSE [facility] [address] [place], [place] 06/14/2024 STACIE LAROSE [facility] [address] [place], [place] 06/29/2024 STACIE LAROSE [facility] [address] [place], [place] 08/02/2024 STACIE LAROSE [facility] [address] [place] [address] 09/14/2024 STACIE LAROSE [facility] [address] [place], [place] 11/03/2024 STACIE LAROSE [facility] [address] [place] 11/08/2024 STACIE LAROSE [facility] [address] [place] 11/24/2024 STACIE LAROSE [facility] [address] [place] 12/26/2024 STACIE LAROSE [facility] [address] [place] 11/03/2024 STACIE LAROSE [facility] [address] [place] 12/29/2024 STACIE LAROSE Assessments Encounter Date Diagnosis (ICD Code) Assessment Notes Treatment Notes Treatment Clinical Notes Section Notes 06/19/2024 Primary osteoarthritis of both knees (ICD-10 - M17.0) Suha would like to repeat the Visco supplementation injections today. The injections allowed her to decrease her medications and can increase her activity. She has had the right knee Visco supplementation injection over 6 months ago and we discussed repeating that injection today. We discussed a orchestra injection for left knee and follow-up in one month when she is eligible to repeat the left knee Visco supplementation injection. Risks and benefits of the injections were discussed at length, including alternative injections and possible surgical management. She is interested in repeating the Visco supplementation injection. 09/15/2024 Primary osteoarthritis of both knees (ICD-10 - M17.0) Suha has had relief with the previous viscosupplementation injections. She would like to repeat the left knee Visco supplementation injection. Risks and benefits were discussed. She would like to repeat the right knee viscosupplementation injection, but it is too soon to repeat the injection. She would like to proceed with a corticosteroid injection today. Alternative treatments were also discussed at length. She will follow-up in 4 months to repeat the right knee Visco supplementation injection. 09/15/2024 Hypertension, unspecified type (ICD-10 - I10) Suha has an elevated blood pressure on examination today measuring 149/79. It was recommended to the patient that they follow up with their primary care physician for further workup and management. 01/10/2025 Lumbar spondylosis (ICD-10 - M47.816) Suha was provided with the contact information for Dr. Ant Jensen and [facility] for further management. 02/27/2025 Primary osteoarthritis of left knee (ICD-10 - M17.12) 01/10/2025 Primary osteoarthritis of right knee (ICD-10 - M17.11) Suha has done well with viscosupplementation injections and the pain has recurred. The risks and benefits of repeating the viscosupplementation injections were discussed. We also discussed alternative treatment options including continued physical therapy, cortisone injections, orthobiologics injections, and traditional surgical management. She is interested in proceeding with the viscosupplementation injections today as the next step in management, and will follow up in 6 weeks to reassess. 01/10/2025 Hypertension, unspecified type (ICD-10 - I10) Suha has an elevated blood pressure on examination today measuring 150/90. It was recommended to the patient that they follow up with their primary care physician for further workup and management. 06/19/2024 Pain in left ankle and joints of left foot (ICD-10 - M25.572) 06/19/2024 Other chronic pain (ICD-10 - G89.29) 06/19/2024 Left Achilles tendinitis (ICD-10 - M76.62) Suha what's that she has chronic left ankle pain. She is previously been managed with physical therapy, but has been offered modalities and not a strengthening program. There is fusiform thickening of the mid substance Achilles tendon on exam today. We discussed a eccentric strengthening program. We discussed doing the home therapy program with a RTM program the improve compliance and progress her activity as tolerated. We discussed further imaging if the pain persists. 06/19/2024 Hypertension, unspecified type (ICD-10 - I10) Suha has an elevated blood pressure on examination today measuring 156/86. It was recommended to the patient that they follow up with their primary care physician for further workup and management. 06/19/2024 Primary osteoarthritis of right knee (ICD-10 - M17.11) 06/19/2024 [employer]OTZ was used to assist with documentation of this note. While I did review this for errors, it is certainly possible that I may have overlooked some. If there is a confusing error, please do not hesitate to contact me for clarification. Thank you. 09/15/2024 Other Mow[employer] n was used to assist with documentation of this note. While I did review this for errors, it is certainly possible that I may have overlooked some. If there is a confusing error, please do not hesitate to contact me for clarification. Thank you. 01/10/2025 Other [employer] n was used to assist with documentation of this note. While I did review this for errors, it is certainly possible that I may have overlooked some. If there is a confusing error, please do not hesitate to contact me for clarification. Thank you. 02/27/2025 Other [employer] n was used to assist with documentation of this note. While I did review this for errors, it is certainly possible that I may have overlooked some. If there is a confusing error, please do not hesitate to contact me for clarification. Thank you. Plan Of Treatment Pending Test Test Name Order Date X ray : Spines, lumbar 09/14/2024 X ray : Knee, right 06/18/2023 X ray : Pelvis 09/14/2024 X ray : Thoracic spine 2 views Next Appt Details Provider Name:STACIE MO, 09/04/2025 11:00:00 AM, [address] [address], [place], [address], Insurance Providers Payer Name Payer Address Payer Phone Subscriber Number Group Number Insured Name Patient Relationship to Insured Coverage Start Date Coverage End Date [employer] [place] [address] [place], [place] [id number] Suha Swain Self - patient is the insured Medications Administered Medication Instructions Date of Administration Dosage Notes Gel-One 07/07/2023 3 mL Gel-One 02/27/2025 1 mL Gel-One 06/19/2024 1 mL Gel-One 10/12/2023 1 mL Medical (General) History Medical History History ICD Code kidney stones osteporosis Surgical History Surgery Date(Month/Year) left wrist right wrist hysterectomy
--- OUTSIDE RECORDS SUMMARY | 2025-04-19 15:44 | XMS_ITS | Patient Health Record ---
Author Organization [facility] Address [address] [place], [place] [id number] Care Team Providers Care Sales And Marketing Representative Name Role Phone Mervin Prieto MD Primary Care Provider UnavailTennille Vitale Unavailable [phone] Allergies Allergen (clinical drug ingredient) Drug/Non Drug [...] Status W/U Status Risk Notes Problem Edema (642831911) Edema (782.3) Active confirme d Problem Closed fracture of fibula (354362256) Fx fibula, closed (823.81) Active confirmed Problem Closed fracture of foot (517017741) Fracture, unspecified (foot) (825.20) Active confirmed Problem 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 Problem Sprain of ankle (38963445) Sprain, ankle (845.00) Active confirmed Problem Sprain of ligament o f tarsometatarsal joint (29076557) Sprain foot, tarsometatarsal (joint) (ligament) (845.11) Active confirmed Problem Sprain, metatarsophalangeal joint (900388529) Sprain MPJ (joint) (845.12) Active confirmed Problem Tenosynovitis of foot and ankle (727.06) Active confirmed Problem Enthesopathy (00655341) Capsulitis/tendon itis, un (726.90) Active confirmed Problem Onychomycosis (925590998) Onychomycosis (110.1) Active confirmed Problem Pain in limb (78318442) Pain in limb (729.5) Active confirmed Problem Sprain of ankle (41157326) Sprain, ankle (845.00) Active confirmed Problem Pain in limb (63715501) Pain in limb (729.5) Active confirmed Problem Sprain of foot (63253770) Sprain of foot (845.19) Active confirmed Plan Of Treatment No Information Insurance Providers Payer Name Payer Address Payer Phone Subscriber Number Group Number Insured Name Patient Relationship to Insured Coverage Start Date Coverage End Date [facility] [address] [place] [address] [phone] [id number] Suha Medina Self - patient is the insured Medical (General) History Medical History History ICD Code foot fracture gait disorder fungus on nails heel pain osteopenia Surgical History Surgery Date(Month/Year) wrist surgery
== END 2025-04-19 15:56 | disposition home or self-care (01) ==
LOC: HO.HKAS 15:04
PROVIDERS: PCP Internal Medicine; Visit Provider Internal Medicine Nephrology
DX: I10 Essential (primary) hypertension (principal); N13.39 Other hydronephrosis; R60.9 Edema, unspecified
CPT/HCPCS: 99214

== ENCOUNTER → 2025-04-19 15:04 | Outpatient (BNVA) | payer MEDICARE, SELFPAY | PROVIDERS: PCP Internal Medicine; Visit Provider Internal Medicine Nephrology | DX: R60.9 Edema, unspecified (principal); N13.39 Other hydronephrosis; I10 Essential (primary) hypertension | CPT/HCPCS: 99212 ==